=== PATIENT | female | born 1960 | race Caucasian/White ===

== ENCOUNTER → 2017-02-23 | Outpatient (CLI) | payer OTHER | LOC: BMCIMAGING 09:22 | PROVIDERS: ATTEND Physician Assistant | DX: M16.11 Unilateral primary osteoarthritis, right hip (principal) ==

== ENCOUNTER → 2017-03-10 | Outpatient (CLI) | payer OTHER | LOC: BMCIMAGING 09:15 | PROVIDERS: ATTEND Registered Nurse General Practice | DX: R05 Cough (principal) ==

== ENCOUNTER → 2017-10-03 | Outpatient (CLI) | payer OTHER | LOC: BMCIMAGING 09:02 | PROVIDERS: ATTEND Physician Assistant | DX: S83.011A Lateral subluxation of right patella, initial encounter (principal); M17.11 Unilateral primary osteoarthritis, right knee ==

== ENCOUNTER → 2017-10-26 | Outpatient (CLI) | payer OTHER | LOC: FIMAGING 14:08 | PROVIDERS: ATTEND Orthopaedic Surgery | DX: M16.11 Unilateral primary osteoarthritis, right hip (principal) ==

== ENCOUNTER 2017-11-07 08:19 | Inpatient (IN) | payer OTHER ==
--- NOTE | 2017-11-07 06:31 | PDHPUP ---
History & Physical Update H&P update statement: This history and physical update is based on an assessment of the patient which was completed after admission or registration (within 24 hours), but prior to the surgery/procedure. H&P update: no change in patient's condition since H&P completed
--- NOTE | 2017-11-07 06:31 | PDIAF ---
- Diagnosis Diagnosis: right hip djd Code Status: Full Code - Medication Management Discharge Medications: Medications to Continue on Transfer Cholecalciferol (Vitamin D3) 10/19/17 [Last Taken Unknown] Hydrochlorothiazide 10/19/17 [Last Taken Unknown] Ibuprofen 10/19/17 [Last Taken Unknown] Lisinopril 10/19/17 [Last Taken Unknown] Magnesium 10/19/17 [Last Taken Unknown] Discharge Medications: Refer to the Discharge Home Medication list for PRN reason. - Orders Services needed: Physical Therapy Diet Recommendation: no restrictions on diet Diet Texture: Regular Texture Diet Activity/Weight Bearing Restrictions: wbat. anterior hip precautions. keep dressing in place. if dressing becomes saturated change daily. f/u at two weeks. seek attn for increasing pain, drainage, swelling or other focal complaint - Follow Up Care Current Providers and Referrals: Ivy Borges PA [Primary Care Provider] -
[~2017-11-07 08:19] MED LIST: ROPIVACAINE 0.2% 80 MG, EPINEPHrine 0.2 MG, KETOROLAC TROMETHAMINE 30 MG, morphINE 10 M... IU ONE; TRANEXAMIC ACID 1,000 MG in NS 100 ML IV ONE; VANCOMYCIN 1.5 GM in NS 250 ML IV ONE; VANCOMYCIN PHARMACY TO DOSE MISC ONE; ceFAZolin 1 GM/5 ML SYR ONE
[2017-11-07] MEDS ORDERED: FAMOTIDINE 20 MG TAB PO ONE (08:30)
[2017-11-07] MEDS ORDERED: ACETAMINOPHEN 325 MG TAB PO ONE (08:30)
[2017-11-07] MEDS ORDERED: LR 1,000 ML IV ONE (08:32)
[2017-11-07] MEDS ORDERED: ceFAZolin 1 GM/5 ML SYR ONE (08:56)
--- NOTE | 2017-11-07 09:23 | PDANEPAE ---
ANE History of Present Illness DJD R Knee s/f R FELIX ANE Past Medical History - Cardiovascular History Hx Hypertension: Yes Hx Arrhythmias: No Hx Chest Pain: No Hx Coronary Artery / Peripheral Vascular Disease: No Hx CHF / Valvular Disease: No Hx Palpitations: No - Pulmonary History Hx COPD: No Hx Asthma/Reactive Airway Disease: No Hx Recent Upper Respiratory Infection: No Hx Oxygen in Use at Home: No Hx Sleep Apnea: No Sleep Apnea Screening Result - Last Documented: Negative - Neurologic History Hx Cerebrovascular Accident: No Hx Seizures: No Hx Dementia: No - Endocrine History Hx Diabetes: No - Renal History Hx Renal Disorders: No - Liver History Hx Hepatic Disorders: No - Neurological & Psychiatric Hx Hx Neurological and Psychiatric Disorders: Yes Neurological / Psychiatric History Comment: depression,anxiety - Cancer History Hx Cancer: No - Congenital Disorder History Hx Congenital Disorders: No - GI History Hx Gastrointestinal Disorders: No - Other Health History Other Health History: none - Chronic Pain History Chronic Pain: Yes (knee) - Surgical History Prior Surgeries: none ANE Review of Systems Review of Systems: - Exercise capacity METS (RN): 4 METS ANE Patient History - Allergies Allergies/Adverse Reactions: Penicillins Allergy (Verified 10/19/17 16:37) Hives Lpruhat-Azm-Cig Reductase Inhibitor Allergy (Verified 11/07/17 08:42) - Home Medications Home medications: home medication list seen and reviewed Home Medications: Cholecalciferol (Vitamin D3) 10/19/17 [Last Taken 10/31/17] Hydrochlorothiazide 10/19/17 [Last Taken 11/06/17] Ibuprofen 10/19/17 [Last Taken 10/31/17] Lisinopril 10/19/17 [Last Taken 11/06/17] Magnesium 10/19/17 [Last Taken 10/31/17] Citalopram 11/07/17 [Last Taken 11/06/17] - NPO status NPO Since - Liquids (Date): 11/06/17 NPO Since - Liquids (Time): 23:00 NPO Since - Solids (Date): 11/06/17 NPO Since - Solids (Time): 22:00 - Anes Hx Anes Hx: no prior problems - Smoking Hx Smoking Status: Heavy smoker - Alcohol Use Alcohol Use: Occasionally - Family Anes Hx Family Anes Hx: none Family Hx Anesthesia Complications: none ANE Labs/Vital Signs - Vital Signs Blood Pressure: 159/95 Heart Rate: 85 Respiratory Rate: 18 O2 Sat (%): 95 Height: 167.64 cm Weight: 95.254 kg ANE Physical Exam - Airway Neck exam: FROM Mallampati Score: Class 2 Mouth exam: normal dental/mouth exam - Pulmonary Pulmonary: expiratory wheeze, inspiratory crackles - Cardiovascular Cardiovascular: regular rate and rhythym - ASA Status ASA Status: II ANE Anesthesia Plan Anesthesia Plan: spinal
[2017-11-07] MEDS ORDERED: fentaNYL 100 MCG/2 ML INJ ONE (09:59)
[2017-11-07] MEDS ORDERED: PROPOFOL/EMULSION 500 MG/50 ML BOTTLE IV ONE ×3 (09:59→11:29)
[2017-11-07] MEDS ORDERED: MIDAZOLAM 2 MG/2 ML VIAL ONE (10:08)
[2017-11-07] MEDS ORDERED: LIDOCAINE 2% JELLY 5 ML TUBE ONE (10:27)
[2017-11-07] MEDS ORDERED: PHENYLEPHRINE HCL 100 MCG/ML SYR ONE (10:27)
[2017-11-07] MEDS ORDERED: BACITRACIN 50,000 UNITS/10 ML SYR IRR ONE (10:29)
[2017-11-07] MEDS ORDERED: epHEDrine SULFATE 10 MG/ML SYR ONE (11:13)
[2017-11-07] MEDS ORDERED: METOCLOPRAMIDE 10 MG/2 ML VIAL IVP PRN ×2 (11:35→11:42)
[2017-11-07] MEDS ORDERED: ONDANSETRON 4 MG/2 ML VIAL IVP PRN ×2 (11:35→11:42)
[2017-11-07] MEDS ORDERED: PROMETHAZINE HCL 25 MG/ML INJ IVP PRN ×2 (11:35→11:42)
[2017-11-07] MEDS ORDERED: ACETAMINOPHEN 500 MG TAB PO PRN (11:35)
[2017-11-07] MEDS ORDERED: MEPERIDINE 25 MG/0.5 ML AMP IVP PRN (11:35)
[2017-11-07] MEDS ORDERED: LR 500 ML IV PRN (11:35)
[2017-11-07] MEDS ORDERED: PHENYLEPHRINE HCL 100 MCG/ML SYR IVP PRN (11:35)
[2017-11-07] MEDS ORDERED: NALOXONE HCL 0.4 MG/ML INJ IVP PRN (11:35)
[2017-11-07] MEDS ORDERED: fentaNYL 100 MCG/2 ML INJ IVP PRN (11:35)
[2017-11-07] MEDS ORDERED: LABETALOL HCL 5 MG/ML 20 ML MDV IVP PRN (11:35)
[2017-11-07] MEDS ORDERED: ALBUTEROL 3 ML DEYVIAL IH PRN (11:35)
[2017-11-07] MEDS ORDERED: HYDROCODONE/APAP 5/325 TAB PO PRN (11:35)
[2017-11-07] MEDS ORDERED: oxyCODONE IR 5 MG TAB PO PRN (11:35)
[2017-11-07] MEDS ORDERED: HYDROmorphONE/DILAUDID 2 MG/ML INJ IVP PRN (11:35)
[2017-11-07] MEDS ORDERED: DEXAMETHASONE 4 MG/ML VIAL IVP PRN (11:35)
[2017-11-07] MEDS ORDERED: ONDANSETRON DISINTEGRATING 4 MG TAB PO PRN (11:42)
[2017-11-07] MEDS ORDERED: LACTULOSE 20 GM/30 ML UDCUP PO PRN (11:42)
[2017-11-07] MEDS ORDERED: traMADol 50 MG TAB PO PRN (11:42)
[2017-11-07] MEDS ORDERED: POLYETHYLENE GLYCOL 3350 17 GM PKT PO PRN (11:42)
[2017-11-07] MEDS ORDERED: TEMAZEPAM 15 MG CAP PO PRN (11:42)
[2017-11-07] MEDS ORDERED: CYCLOBENZAPRINE 10 MG TAB PO PRN (11:42)
[2017-11-07] MEDS ORDERED: DIPHENOXYLATE/ATROPINE LOMOTIL 1 TAB PO PRN (11:42)
[2017-11-07] MEDS ORDERED: MAGNESIUM HYDROXIDE 30 ML UDCUP PO PRN (11:42)
[2017-11-07] MEDS ORDERED: diphenhydrAMINE 25 MG CAP PO PRN (11:42)
[2017-11-07] MEDS ORDERED: PROMETHAZINE HCL 25 MG SUPPR PR PRN (11:42)
[2017-11-07] MEDS ORDERED: BISACODYL 10 MG SUPP PR PRN (11:42)
--- NOTE | 2017-11-07 11:42 | POSTOPPROG ---
Post Op Note Date of Operation: 11/07/17 Surgeon: Osito Gale Hvac Design Mechanical Engineer: asa lott Anesthesia: IV Sedation, Spinal Pre-op Diagnosis: right hip djd Post-op Diagnosis: same Indication: same Procedure: right lesli Inf/Abcess present in the surg proc area at time of surgery?: No EBL: 100-500 Complications: none
[2017-11-07] MEDS ORDERED: LR 1,000 ML IV SCH (12:00)
--- NOTE | 2017-11-07 12:03 | PDMN ---
Medical Necessity Medical necessity: [place] M560 hip arthroplasty A-2 days INPT only list : R FELIX
--- NOTE | 2017-11-07 12:23 | POSTANESTH ---
Post Anesthetic Evaluation Cardiovascular Status: Normal, Stable Respiratory Status: Normal, Stable Level of Consciousness/Mental Status: Can Participate in Eval Pain Control: Adequate, Prn Tx Ordered Nausea/Vomiting Control: Adequate, Prn Tx Ordered Complications Possibly Related to Anesthesia: None Noted
[2017-11-07] MEDS: oxyCODONE IR 5 MG TAB PO PRN ×4 (13:54→21:54)
[2017-11-07] MEDS: TRANEXAMIC ACID 650 MG TAB PO SCH (16:18)
[2017-11-07] MEDS: NICOTINE 14 MG/24 HR PATCH TD SCH (16:18)
[2017-11-07] MEDS: FAMOTIDINE 20 MG TAB PO SCH (21:54)
[2017-11-07] MEDS: ASPIRIN 325 MG TAB PO SCH (21:54)
[2017-11-07] MEDS: SENNOSIDES/DOCUSATE SODIUM TAB PO SCH (21:54)
[2017-11-08] MEDS: TRANEXAMIC ACID 650 MG TAB PO SCH ×2 (00:03→08:30)
[2017-11-08] MEDS: oxyCODONE IR 5 MG TAB PO PRN ×3 (01:24→11:25)
--- NOTE | 2017-11-08 07:29 | PDIAF ---
- Diagnosis Diagnosis: right hip djd Code Status: Full Code - Medication Management Discharge Medications: Medications to Continue on Transfer Cholecalciferol Vit D3 [Vitamin D3 (*)] 1,000 units PO DAILY 10/19/17 [Last Taken 10/31/17] Herbals/Supplements -Info Only 1 ea PO DAILY 10/19/17 [Last Taken Unknown] Hydrochlorothiazide [HCTZ (*)] 12.5 mg PO DAILY 10/19/17 [Last Taken 11/06/17] Ibuprofen [Motrin (*)] 200 mg PO DAILY PRN 10/19/17 [Last Taken 10/31/17] Lisinopril [Zestril 20 mg (*)] 20 mg PO DAILY 10/19/17 [Last Taken 11/06/17] Citalopram [CeleXA 20 MG] 20 mg PO DAILY 11/07/17 [Last Taken 11/06/17] Cyanocobalamin [Vitamin B12 (*)] 1,000 mcg PO DAILY 11/07/17 [Last Taken ] Aspirin [Aspirin 325 mg (*)] 325 mg PO DAILY tab 11/08/17 [Last Taken Unknown] Cyclobenzaprine [Flexeril 10 MG (*)] 10 mg PO Q8HRS PRN #20 tab 11/08/17 [Last Taken Unknown] oxyCODONE IR [Oxycodone Ir (*)] 5 - 10 mg PO Q3HRS PRN #50 tab 11/08/17 [Last Taken Unknown] Discharge Medications: Refer to the Discharge Home Medication list for PRN reason. - Orders Services needed: Physical Therapy Diet Recommendation: no restrictions on diet Diet Texture: Regular Texture Diet Activity/Weight Bearing Restrictions: wbat. anterior hip precautions. keep dressing in place. if dressing becomes saturated change daily. f/u at two weeks. seek attn for increasing pain, drainage, swelling or other focal complaint Additional Instructions: TOTAL JOINT ARTHROPLASTY DISCHARGE INSTRUCTIONS 1. Your surgeon follows the [facility] protocol for reducing your risk of DVT (blood clots) following surgery. Medication will be ordered to prevent blood clots. A sudden increase in calf pain and/or swelling could indicate a blood clot in your leg. If this occurs, please call your surgeon or his/her certified ophthalmic assistant. An ultrasound of the leg may be necessary to diagnose a blood clot. If you have conditions that make you a higher risk for blood clots, your surgeon may use more aggressive ways to prevent them. Notify your surgeon if you think you are a high risk for blood clots. 2. Wear your white surgical stockings (SAMANTHA hose) for 2 weeks. This decreases your swelling and may help prevent blood clots. It is ok to remove SAMANTHA hose at night time to give your legs a break. 3. Swelling and bruising in the surgical leg is common. If you feel that it is excessive, please notify your surgeon. 4. Elevate your surgical leg with the ankle above the hip several times every day. Please keep the leg straight when you elevate by putting pillows under your foot. Do not put pillows under your knee. This will make being able to fully straighten more difficult. This is uncomfortable, but try to do it as much as possible. 5. For total knee replacements use compressive wrap on your knee for 3-5 days after surgery, then you can discontinue it. 6. Use a walker or crutches for 1-2 weeks. Progress your weight-bearing as tolerated. You may start to use a cane when you feel stable and safe. 7. You will receive physical therapy instructions in the hospital. Continue those exercises at home. There are additional exercises in the total joint booklet you were given before surgery. Outpatient physical therapy will begin 7- 10 days after surgery. Please schedule this in advance. 8. Use ice on your knee at least 3-5 times every day for 30 minutes. This helps reduce pain and swelling. Also use it at night before falling asleep. 9. Leave your surgical dressing in place for 2 weeks. Your dressing is water resistant, but not waterproof. Cover it with Saran Wrap or Hfzuu-j-Rmhn before showering. You may shower as soon as you feel safe entering a shower. If you notice bleeding from your incision 2 or 3 days after surgery, please notify your surgeon. 10. Due to narcotics, decreased activity and altered diet, most patients experience constipation after surgery. Use duhy-vvy-lkcmjei stool softeners while you are on narcotics. 11. You may drive a car when you are comfortable bearing weight, have good muscular control of your leg and are off narcotics. This usually occurs 2-4 weeks after surgery, depending on which leg was operated on. 12. If there are questions not addressed here, please refer the [facility] book given for more information. If you still have questions, please contact your surgeon s office. 13. If you have a life-threatening emergency, please call 911 and go to the emergency room immediately. For non-life threatening emergencies, please call your physicians office for advice before going to the emergency room. - Follow Up Care Current Providers and Referrals: Osito aGle MD [Medical Doctor] - Ivy Borges PA [Primary Care Provider] -
--- NOTE | 2017-11-08 07:31 | SOAPPROG ---
SOAP Progress Note Assessment/Plan: Assessment: s/p lesli Plan:stable xray d/c home dvt precautions reviewed f/u at two weeks 11/08/17 07:29 Subjective: doing well no cp or sob Objective: Vital Signs Temp Pulse Resp BP Pulse Ox 36.7 C 86 16 125/76 H 94 11/08/17 04:36 11/08/17 04:36 11/08/17 04:36 11/08/17 04:36 11/08/17 04:36 Laboratory Results 11/08/17 04:37 11/07/17 11/08/17 11/09/17 05:59 05:59 05:59 Intake Total 2875 Output Total 1330 Balance 1545 dressing intact intact pf,df,ehl toes warm and pink neg homans xrays stable anatomic alignement ICD10 Worksheet Patient Problems: Problems Problem Status Onset Hip arthritis Acute - ICD10 Problem Qualifiers (1) Hip arthritis
[2017-11-08] MEDS: SENNOSIDES/DOCUSATE SODIUM TAB PO SCH (08:29)
[2017-11-08] MEDS: ASPIRIN 325 MG TAB PO SCH (08:29)
[2017-11-08] MEDS: FAMOTIDINE 20 MG TAB PO SCH (08:30)
[2017-11-08] MEDS: NICOTINE 14 MG/24 HR PATCH TD SCH (08:35)
[2017-11-08 08:40] VITALS: BP 114/75
[2017-11-08] MEDS ORDERED: LISINOPRIL 20 MG TAB PO SCH (09:00)
[2017-11-08] MEDS ORDERED: CITALOPRAM 20 MG TAB PO SCH (09:00)
[2017-11-08] MEDS ORDERED: HYDROCHLOROTHIAZIDE 12.5 MG CAP PO SCH (09:00)
[2017-11-08] MEDS ORDERED: CYANO/VITAMIN B12 1000 MCG TAB PO SCH (09:00)
--- NOTE | 2017-11-08 11:57 | ASMTCMCOM ---
CM Note CM Note Notes: Pt agreeable to home PT, pt has unique [employer] plan. [facility] cannot take pt insurance. Telephone call to pt insurance [phone], agent reports there are only 4 home health agencies in network in [place] are: [facility], [facility], [facility], [facility] and [facility]. Referrals pending for [facility], [facility], [facility] and [facility]. CM to follow. Date Signed: 11/08/2017 11:56 AM Electronically Signed By:NIVIA Temple
--- NOTE | 2017-11-08 14:31 | ASMTCMCOM ---
CM Note CM Note Notes: Spoke with Pancho at [facility] #[phone], able to accept patient and open on . CM has been unsuccessful in finding a home care with patient's insurance that will accept. Will go with [facility] - they will reach out to patient and set-up an eval for . Confirmed all orders received via [employer]. Date Signed: 11/08/2017 02:30 PM Electronically Signed By:Brenda Willard RN
--- NOTE | 2017-11-08 14:33 | ASDISCHSUM ---
Discharge Information Plan Status:Home with Home Health Medically Cleared to Leave: Discharge Date:11/08/2017 11:33 AM CM D/C Disposition:Home Health Service ADT D/C Disposition:Home Health Service Projected Discharge Date:11/08/2017 11:00 AM Transportation at D/C: Discharge Delay Reason: Follow-Up Date:11/08/2017 11:00 AM Discharge Slot: Final Diagnosis: Placement Information Referral Type:*Home Health Care Services Referral ID:[id number] Provider Name:[facility] Address 1:[address] [address] Address 2: City:[place] Selection Factors: State:[place] Patient Contact Information Contact Name:PRAVEEN Relationship:Daughter Address: Work Phone: City: [facility] Phone: State/[facility] Code: Email: Financial Information Financial Class:HMO and PPO Plans Primary Plan Desc:[facility] Primary Plan Number:[id number] Secondary Plan Desc: Secondary Plan Number: Assessment Information [facility] CM Progress Note CM Note CM Note Notes: Pt agreeable to home PT, pt has unique [employer] plan. [facility] cannot take pt insurance. Telephone call to pt insurance [phone], agent reports there are only 4 home health agencies in network in pt are: [facility], [facility], [facility], [facility]. Referrals pending for [facility]. CM to follow. Date Signed: 11/08/2017 11:56 AM Electronically Signed By:NIVIA Temple [facility] CM Progress Note CM Note CM Note Notes: Spoke with Pancho at [facility] #[phone], able to accept patient and open on . CM has been unsuccessful in finding a home care with patient's insurance that will accept. [facility] go with [facility] - they will reach out to patient and set-up an eval for . Confirmed all orders received via [employer]. Date Signed: 11/08/2017 02:30 PM Electronically Signed By:Brenda Willard RN Intervention Information
--- NOTE | 2017-11-18 07:30 | GDS ---
[f rep st] DISCHARGE SUMMARY COLLAR POINTER: Madhu Ortiz. ADMIT DIAGNOSIS: Right hip degenerative joint disease. DISCHARGE DIAGNOSIS: Right hip degenerative joint disease. PROCEDURE: Right total hip arthroplasty. HISTORY OF PRESENT ILLNESS: Patient is a 57-year-old woman with end-stage arthritis to her right hip . Clinical and radiographic features consistent with this. She has failed all attempts at conservat iliana management. I have, therefore, recommended total hip replacement. I have outlined the surgical procedure, risks, benefits, and alternatives. She wished to proceed. Written consent was signed and placed in patient's chart. HOSPITAL COURSE: Patient was admitted to the hospital after uncomplicated total hip arthroplasty. S he tolerated the procedure well. She had no postoperative complications. At the time of discharge, she is tolerating an oral diet. Pain is well-controlled on oral medicines. She is voiding without d ifficulty. Dressing is clean, dry, and intact. She has negative Kyleigh's bilaterally. X-rays were a natomic. Serial hematocrit has remained stable. DISCHARGE ACTIVITY: Weightbearing as tolerated. Anterior hip precautions. Daily dressing changes. No soaking or immersion. May shower without the bandage. FOLLOWUP: In 2 weeks. DISCHARGE INSTRUCTIONS: Seek attention for increasing redness, swelling, drainage, discharge, or oth er focal complaints. DISCHARGE MEDICATIONS: Oxycodone 5 mg 1-2 every 4 hours p.r.n. pain, aspirin 325 mg p.o. daily for 6 weeks. /[id number]/MODL
--- NOTE | 2017-11-18 07:55 | GOP ---
[f rep st] OPERATIVE REPORT DATE OF OPERATION: 11/07/2017 SURGEON: Osito Gale MD ENVIRONMENTAL PLANNER: Curry Ortiz, FLANGE MACHINE OPERATOR, [facility]. malt specifications control assistant was medical necessity for the entirety of the case. PREOPERATIVE DIAGNOSIS: Right hip degenerative joint disease. POSTOPERATIVE DIAGNOSIS: Right hip degenerative joint disease. PROCEDURE PERFORMED: Right total hip arthroplasty-anterior/MAKOplasty. FINDINGS: SPECIMENS: To Pathology: The femoral head. INDICATIONS: Alysha is a 57-year-old woman with end-stage arthritis to the right hip. She has failed all attempts at conservative management. She has clinical and radiographic features consistent with hip arthritis. I have therefore recommended total hip replacement. She understood the risks, benefi ts, alternatives, and wished to proceed. DESCRIPTION OF PROCEDURE: Patient was identified in the preanesthesia area. The right hip clearly d emarcated as the operative site with indelible marker. She was given 2 g of Ancef. 1 g of vancomyci n, given a penicillin allergy. In the OR spinal anesthetic was placed followed by general endotrache al anesthesia. She was positioned in the supine position. The pelvis and both lower extremities wer e sterilely prepped and draped in usual fashion. Appropriate time-out procedure was carried out. Th e attention was first turned to the left hip. A 2 cm incision was made over the iliac crest and 3 pi ns were then placed. The pelvic reference array was affixed for the MAKOplasty protocol. Attention was then turned to the right hip. An anterior approach was made. Thick subcutaneous flaps were elev ated. The fascia overlying the tensor fascia mikael was then opened in the origin of its fibers. The tensor retracted laterally. The underlying vascular structures were identified, ligated, cauterized, and transected. The rectus elevated over the anterior capsule. Blunt Homans were then placed over the medial and superior aspect of the femoral neck. A T capsulotomy was then made. The retractor the n placed in an intracapsular position. The bony wedge was withdrawn from the femoral neck as was andrea ited head, there were gross bony changes consistent with arthritis. The remnants of the acetabular s oft tissue were sharply excised. The bony landmarks were entered into the computer. Using the Jalil allred protocol a single stage reaming was carried out with the 52 mm reamer, opening angle of 40 degr ees and anteversion of 20 degrees. A titanium acetabular shell was then impacted, 52 mm, into the ap propriate depth and orientation. A 0-degree X3 polyethylene liner was then placed with a 32 mm inner diameter. Attention was then turned to the femur. The femur was delivered through the use of exten zak of the table, soft tissue releases, and placement. The proximal canal was then opene d. Serial broached to a size 5 stem. Trial reduction was carried out with a size 5, 127 degree neck angle hip stem, and ultimately a 32 mm +0 mm head was selected. This allowed christianity of leg erlin gths. Full stability with external rotation and extension and traction. The trial stem was withdraw n. The final 5 stem was then impacted, confirmed to be fully seated. The trunnion was thoroughly cl eansed and a 32 mm +0 mm neck length Biolox head was then placed. Intraoperative fluoroscopy was use d to confirm anatomic positioning and alignment. The wound was copiously irrigated. The stability p rofile demonstrated full extension with external rotation without instability. The wound was irrigat ed in layers and closed using 0 Vicryl, 2-0 Monocryl, 4-0 Monocryl, and nelson. The margins were in stilled with a joint cocktail of ropivacaine, morphine, Toradol, and epinephrine. Sterile dressing w as applied. The patient was awakened, extubated, taken to recovery room in good stable condition. TOTAL TOURNIQUET TIME: None. COMPLICATIONS: None. IMPLANTS: Titanium acetabular shell, size 52. Trident X3 0-degree polyethylene insert, 32 mm. Biol ox Delta ceramic head, 32 mm +0 mm neck length. Accolate 227 degree neck angle hip stem size 5. DISPOSITION: To the recovery room, then the floor. /[id number]/MODL
== END 2017-11-08 11:33 | disposition home health service (06) | DRG 470 ==
LOC: F3N 08:19
PROVIDERS: ADMIT Orthopaedic Surgery; ATTEND Orthopaedic Surgery
PROC: 0SR904Z Replacement of Right Hip Joint with Ceramic on Polyethylene Synthetic Substitute, Open Approach (ICD-10-PCS; principal; 2017-11-07 10:00)
DX: M16.11 Unilateral primary osteoarthritis, right hip (principal); I10 Essential (primary) hypertension; F17.200 Nicotine dependence, unspecified, uncomplicated; E78.2 Mixed hyperlipidemia; E55.9 Vitamin D deficiency, unspecified
CPT/HCPCS: 97116-GP; 97161-GP; 97165-GO; 97530-GP; J0171; J1885; J2250; J2270; J2370; J2704; J2795; J3010; J3370

== ENCOUNTER → 2017-12-23 | Outpatient (CLI) | payer OTHER | LOC: BMCIMAGING 13:38 | PROVIDERS: ATTEND Physician Assistant | DX: Z47.1 Aftercare following joint replacement surgery (principal); Z96.641 Presence of right artificial hip joint ==

== ENCOUNTER → 2018-02-01 | Outpatient (CLI) | payer OTHER | DX: Z09 Encounter for follow-up examination after completed treatment for conditions other than malignant neoplasm (principal); Z96.641 Presence of right artificial hip joint ==

== ENCOUNTER → 2018-05-03 | Outpatient (CLI) | payer OTHER | LOC: BMCIMAGING 10:41 | PROVIDERS: ATTEND Orthopaedic Surgery | DX: Z09 Encounter for follow-up examination after completed treatment for conditions other than malignant neoplasm (principal); Z96.641 Presence of right artificial hip joint ==

== ENCOUNTER → 2018-11-01 | Outpatient (CLI) | payer OTHER | LOC: BMCIMAGING 09:51 | PROVIDERS: ATTEND Orthopaedic Surgery | DX: M25.551 Pain in right hip (principal); Z96.641 Presence of right artificial hip joint ==